=== PATIENT | male | born 1990 | race Caucasian/White ===

== ENCOUNTER 2020-08-11 00:39 | Emergency (ER) | payer OTHER, SELFPAY ==
--- NOTE | ~2020-08-11 | XR_ITS ---
EXAMINATION: XR CHEST CLINICAL INFORMATION: Chest pain COMPARISON: 07/06/2017 TECHNIQUE: 2 views of the chest were obtained. FINDINGS: No significant abnormality is noted involving the heart, lungs, mediastinum, bony thorax or soft tissues. XR/XR chest 2V IMPRESSION: Unremarkable examination.
--- NOTE | 2020-08-11 00:50 | ECG_ITS ---
Test Reason : CHEST PAIN Blood Pressure : / mmHG Vent. Rate : 094 BPM Atrial Rate : 094 BPM P-R Int : 138 ms QRS Dur : 092 ms QT Int : 342 ms P-R-T Axes : 079 027 058 degrees QTc Int : 427 ms Normal sinus rhythm with sinus arrhythmia Possible Left atrial enlargement Incomplete right bundle branch block Borderline ECG No previous ECGs available Referred By: Mendoza Sanford Electronically Signed By:ESAU FITCH
[2020-08-11 00:52] VITALS: BP 137/79; PULSE 106; RESP 18; TEMP 37.1; O2SAT 98; BMI 19.0
[2020-08-11 01:13] VITALS: BP 131/75; PULSE 95; RESP 18; O2SAT 97
--- NOTE | 2020-08-11 01:27 | ED_ITS ---
HPI - Chest Pain General Chief Complaint: Chest Pain Stated Complaint: Chest Pain Time Seen by Provider: 08/11/20 01:27 Source: patient Mode of arrival: ambulatory Limitations: no limitations History of Present Illness HPI narrative: pt Was playing harmonica earlier today and started having pain in the left side of the chest no known cardiac history. Pain increases on deep inspiration no cough no shortness of breath no radiation of pain Related Data Allergies Allergy/AdvReac Type Severity Reaction Status Date / Time No Known Allergies Allergy Unverified 01/18/20 16:12 Review of Systems Review of Systems: Constitutional : No Weight loss, No Fever, No Chills ENT/Mouth : No sore throat, No Rhinorrhea Eyes: No Eye Pain, No Swelling Cardiovascular : + Chest Pain, no palpitations Respiratory : No Cough, No Sputum, no shortness of breath Gastrointestinal : no Nausea, No Vomiting, No Diarrhea, No abdominal Pain, no black stools Genitourinary : No Dysuria, No Urinary Frequency Musculoskeletal : No joint pain, No Myalgias, No Joint Swelling Skin : No Skin Lesions, No rash Neuro : No Weakness, No Numbness, No Dizziness, No Headache Psych : No Anxiety/Panic, No Depression Heme/Lymph: No Bruising, No Lymphadenopathy Endocrine : No Polyuria, No Polydipsia All other systems reviewed and are negative [facility] Social History Social History Alcohol intake: current Alcohol intake frequency: a few times a month Smoking Status: Former smoker Smoked in Last 30 Days: No Use of substances other than those prescribed or required for medical reasons: No Advance Directives: No Physical Exam Vital Signs: Vital Signs: Last Vital Signs Temp 98.8 F 08/11/20 00:52 Pulse 95 08/11/20 01:13 Resp 18 08/11/20 01:13 BP 131/75 08/11/20 01:13 Pulse Ox 97 08/11/20 01:13 Body Mass Index 19.0 Appearance: Alert. Oriented X3. No acute distress. Eyes: Pupils equal, round and reactive to light. ENT: Pharynx normal. Neck: Normal inspection. Neck supple. CVS: Normal heart rate and rhythm. Pulses normal. Respiratory: No respiratory distress. Breath sounds normal. Abdomen: Soft and nontender. Bowel sounds are present, no mass palpable, no CVA tenderness Skin: Skin warm and dry. Normal skin color. Normal skin turgor. Extremities: No lower extremity edema. Neuro: Oriented X 3. No motor deficit. No sensory deficit. MDM - Chest Pain MDM Narrative Medical decision making narrative: Patient's chest pain likely pleuritic patient is saturating 98% at room air chest x-ray negative for pneumothorax will discharge patient ECG Data ECG #1: Attestation: I personally reviewed and interpreted this ECG as follows: Interpretation: Normal sinus rhythm heart rate 94 beats per minute incomplete right bundle-branch block normal axis no acute ST T wave changes no acute ischemia Discharge Plan Discharge Clinical Impression: Acute chest wall pain Patient Disposition: Home, Self-Care Instructions: Chest Wall Pain (ED) Additional Instructions: The chest x-ray is normal. Report to the ER if increased shortness of breath or pain
== END 2020-08-11 02:58 | disposition home or self-care (01) ==
PROVIDERS: Emergency Provider Internal Medicine; PCP Internal Medicine
DX: R07.89 Other chest pain (principal)
CPT/HCPCS: 71046; 93005; 99283; 99285

== ENCOUNTER 2024-05-05 15:02 | Outpatient (REF) | payer OTHER, SELFPAY ==
--- NOTE | ~2024-05-05 | US_ITS ---
CLINICAL HISTORY: tinnitus US Bilateral Carotid Duplex COMPARISON: None FINDINGS: Real-time imaging with color flow doppler imaging and spectral analysis was performed. Waveforms are normal morphology. Peak systolic velocities: Right CCA: 164 cm/s Right ICA: 142 cm/s ICA/CCA ratio: Normal. Right ECA: Patent. Right vertebral artery flow is antegrade. Left CCA: 199 cm/s Left ICA: 157 cm/s ICA/CCA ratio: Normal. Left ECA: Patent. Left vertebral artery flow is antegrade. IMPRESSION: Estimated 50-79 percent stenosis in the bilateral ICAs. This document has been electronically signed by: Lorenzo Hays MD on 05/09/2024 05:00:03
== END 2024-05-05 15:03 | disposition home or self-care (01) ==
LOC: HO.US 15:02
PROVIDERS: PCP Internal Medicine; Visit Provider Internal Medicine
DX: H93.13 Tinnitus, bilateral (principal)
CPT/HCPCS: 93880

== ENCOUNTER → 2024-05-05 15:33 | Outpatient (BNV) | payer OTHER, SELFPAY | PROVIDERS: PCP Internal Medicine; Visit Provider Radiology Diagnostic Radiology | DX: I65.23 Occlusion and stenosis of bilateral carotid arteries (principal) | CPT/HCPCS: 93880 ==

== ENCOUNTER 2024-07-04 15:06 | Outpatient (REF) | payer OTHER, SELFPAY ==
--- NOTE | ~2024-07-04 | XR_ITS ---
CLINICAL HISTORY: M25.532 - Pain in left wrist 4 view left wrist Comparison: None Findings: No fractures or dislocations. No significant arthritic change or erosions. No radiopaque foreign body. IMPRESSION: 1. No acute findings This document has been electronically signed by: Jasmin Mcintyre MD on 07/05/2024 14:33:27
--- OUTSIDE RECORDS SUMMARY | 2024-07-04 19:55 | XMS_ITS | Encounter Summary ---
Author Organization [facility] Address [address] [place] [address] Phone Care Team Providers Care Family Practice Physician Assistant Name Role Phone Unavailable Primary Care Provider Unavailabl e Encounter Details Date Type Department Care Team (Late st Contact Info) Description 12/17/2016 Conversion Encounter [facility] - [address] [id number] Social History Tobacco Use Types Packs/Day Years [...]
--- OUTSIDE RECORDS SUMMARY | 2024-07-04 19:55 | XMS_ITS | Clinical Summary ---
Author Organization [facility] Address [address] [place] [address] Phone Care Team Providers Care Vaccine Manager Name Role Phone Unavailable Primary Care Provider [...]
== END 2024-07-04 15:07 | disposition home or self-care (01) ==
LOC: HO.HOSX 15:06
PROVIDERS: PCP Internal Medicine
DX: M25.532 Pain in left wrist (principal); M77.8 Other enthesopathies, not elsewhere classified
CPT/HCPCS: 73110; 99202

== ENCOUNTER 2024-07-04 15:06 | Outpatient (AMB) | payer OTHER, SELFPAY ==
--- NOTE | 2024-07-04 15:37 | MHC.OFFVIS ---
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 Patient reports about 2-3 months ago he was at work when he lifted a box, states the box fell and he felt a tear in his wrist. He did not seek care however he continues to have pain with certain hand motions that is located at the ulnar aspect of wrist. States feeling a tightness sensation. He avoids hand motions that trigger his pain. No previous tx. 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 Patient reports about 2-3 months ago he was at work when he lifted a box, states the box fell and he felt a tear in his wrist. He did not seek care however he continues to have pain with certain hand motions that is located at the ulnar aspect of wrist. The patient states that he has no pain at baseline or with his regular activities or motions with his left hand, but does state that particular States feeling a tightness sensation. He avoids hand motions that trigger his pain. No previous tx. 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 Neuro: Normal sensation of the tips of all digits of the left hand at this time Vascular: Cap refill brisk Pain: No tenderness to palpation of the radial styloid, ulnar styloid, anatomical snuffbox, or elsewhere in the left wrist ROM: Patient was able to make a closed fist and extend all digits of the left hand fully Patient was able to flex, extend, pronate, supinate the left wrist fully and without any discomfort Skin: No lacerations or abrasions. General: No ecchymosis, erythema, or evidence of infection. No visible or palpable snapping or subluxation of the left ECU tendon Psych: Appears grossly normal Affect normal Attitude cooperative Assessment & Plan Assessment & Plan (1) Extensor carpi ulnaris tendinitis: Code(s): M77.8 - Other enthesopathies, not elsewhere classified Category: Medical Plan 1. ECU tendinitis Patient is educated about this condition Patient is educated about treatment available At this time, patient was provided with a Velcro wrist splint to wear with daytime activities while his wrist is bothering him Patient was also referred to occupational therapy for range of motion and strengthening of the left wrist Patient was amenable to this plan Patient will follow-up as needed with any acute concerns Orders: Orders XR wrist LT w scaphoid 07/04/24 M25.532 - Pain in left wrist OT Evaluation and Treatment Today M77.8 - Other enthesopathies, not elsewhere classified Coding Level of Care Code New Pt Level 3 (74838) Diagnoses Extensor carpi ulnaris tendinitis M77.8
[2024-07-04 15:42] VITALS: BMI 19.5
--- OUTSIDE RECORDS SUMMARY | 2024-07-04 19:08 | XMS_ITS | Clinical Summary ---
Author Organization [facility] Address [address] [place] [id number] Phone Care Team Providers Care Heating Equipment Repairer Name Role Phone Unavailable Primary Care Provider Unavailabl e Immunizations Immunization Administration Dates Next Due DTP 02/28/1994, 3,01/28/1993,10/23 DTaP 5 09/10/1997 Hep B, ped/adol 04/15/1993,1992,1992 Hib (PRP-T) 10/11/1993,199 3,01/28/1993,10/23 IPV 09/10/1997,199 4,01/28/1993,10/23 Influenza, injectable, trivalent 01/24/2009,04/02 Influenza, intranasal, trivalent 12/23/2009 MMR 09/10/1997,10/11/1993 Meningococcal Conj (Menactra) MCV4P 12/16/2006 Td (adult) (MBL), 2 Lf tetan us toxoid, PF, adsorbed 12/30/2004 Tdap 12/01/2007 Varicella 12/16/2006,11/17/1997 Family History Relation Name Status Comments Father Alive Father: Alive a nd well Mother Alive Mother: Alive a nd well Social History Tobacco Use Types Packs/Day Years Used Date Smoking Tobacco: Never Assessed Sex and Gender Information Value Date Recorded Sex Assigned at Not on file Legal Sex Male 4:35 PM EDT Gender Identity Not on file Sexual Orientation Not on file Last Filed Vital Signs Vital Sign Reading Time Taken Comments Blood Pressure 94/74 12/23/2009 12:00 AM EDT Pulse - - Temperature - - Respiratory Rate - - Oxygen Saturation - - Inhaled Oxygen Concentration - - Weight 56.9 kg (125 lb 8 oz) 12/23/2009 12:00 AM EDT Height 176 cm (5' 9.3 ) 12/23/2009 12:00 AM EDT Body Mass Index 18.37 12/23/2009 12:00 AM EDT Plan of Treatment Health Maintenance Due Date Last Done Comments Consider Men B Vaccine (1 of 2 - Bexsero 2-dose series) 2008 DTaP,Tdap,and Td Vaccines (7 - Td or Tdap) 11/30/2017 12/01/2007, 12/30/2004, 09/10/1997, Additional history exists Influenza Vaccines (#1) 2023 12/24/19, 01/24/2009, 04/13/2008 COVID-19 Vaccine ( season) 2024 Hepatitis B Vaccines Completed 04/15/1993, 1992, 1992 HIB Vaccines Completed 10/11/1993, 04/02, 01/28/1993, Additional history exists IPV Vaccines Completed 09/10/1997, 02/01, 01/28/1993, Additional history exists MMR Vaccines Completed 09/10/1997, 10/11/1993 Meningococcal Vaccine Aged Out 12/16/2006 No damari kush eligible based on patient's age to complete this topic Varicella Vaccines Completed 12/16/2006, 11/17/1997 HPV Vaccines Aged Out No longer eligi ble based on patient's age to complete this topic Hepatitis A Vaccines Aged Out No long er eligible based on patient's age to complete this topic Men B Vaccine Aged Out No longer elig ible based on patient's age to complete this topic Pneumococcal Vaccine Aged Out No long er eligible based on patient's age to complete this topic
--- OUTSIDE RECORDS SUMMARY | 2024-07-04 19:08 | XMS_ITS | Encounter Summary ---
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 Name Role Phone Unavailable Primary Care Provider Unavailabl e Encounter Details Date Type Department Care Team (Late st Contact Info) Description 12/17/2016 Conversion Encounter [facility] - [address] [id number] Social History Tobacco Use Types Packs/Day Years Used Date Smoking Tobacco: Never Assessed Sex and Gender Information Value Date Recorded Sex Assigned at Not on file Legal Sex Male 4:35 PM EDT Gender Identity Not on file Sexual Orientation Not on file documented as of this encounter Plan of Treatment Not on file documented as of this encounter Visit Diagnoses Not on filedocumented in this encounter
== END 2024-07-04 16:33 | disposition home or self-care (01) ==
PROVIDERS: PCP Internal Medicine
DX: M77.8 Other enthesopathies, not elsewhere classified (principal)
CPT/HCPCS: 99203

== ENCOUNTER → 2024-07-04 16:01 | Outpatient (BNV) | payer OTHER, SELFPAY | PROVIDERS: PCP Internal Medicine; Visit Provider Radiology Diagnostic Radiology | DX: M25.532 Pain in left wrist (principal) | CPT/HCPCS: 73110 ==

== ENCOUNTER 2024-07-09 11:22 | Emergency (ER) | payer OTHER, SELFPAY ==
--- NOTE | ~2024-07-09 | XR_ITS ---
CLINICAL HISTORY: chest pain 1 view chest x-ray. Comparison: 08/11/2020 Findings: The lungs are adequately expanded. No focal consolidation. No effusion or pneumothorax. Cardiac and mediastinal contours are within normal limits. No acute osseous abnormality Impression: No acute process. This document has been electronically signed by: Familia Yoder MD on 07/09/2024 12:54:28
--- NOTE | 2024-07-09 11:25 | ECG_ITS ---
Test Reason : headache Blood Pressure : */* mmHG Vent. Rate : 77 BPM Atrial Rate : 77 BPM P-R Int : 132 ms QRS Dur : 94 ms QT Int : 352 ms P-R-T Axes : 60 44 66 degrees QTcB Int : 398 ms Normal sinus rhythm with sinus arrhythmia Normal ECG When compared with ECG of 11-Aug-2020 00:50, Incomplete right bundle branch block is no longer Present Non-specific change in ST segment in Anterior leads T wave inversion no longer evident in Anterior leads Referred By: Bony Wade Electronically Signed By: ESAU FITCH
[2024-07-09 11:35] VITALS: BP 133/89; PULSE 96; RESP 20; TEMP 36.6; O2SAT 100; BMI 17.9
--- NOTE | 2024-07-09 11:40 | ED_ITS ---
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 Patient denies any recent long travel recent surgery. Patient denies any flu, fever, or chills. Patient states left-sided chest pain worse on movement and also breathing. Patient denies any estrogen use. Patient denies any calf pain. Related Data Home Medications ?Medication ?Instructions ?Recorded ?Confirmed No Known Home Meds 07/04/24 07/04/24 Allergies Allergy/AdvReac Type Severity Reaction Status Date / Time No Known Allergies Allergy Verified 07/09/24 11:38 Review of Systems 2 Review of Systems: left sided chest pain Yes all other systems are reviewed and are negative [facility] Social History Social History (Updated 07/04/24 @ 15:46 by Elena Sanchez [facility]) Alcohol intake: current Alcohol intake frequency: a few times a month Patient Tobacco Use Status: Former Tobacco user Smoked in Last 30 Days: No Use of substances other than those prescribed or required for medical reasons: No Advance Directives: No Advance Directives Information Provided: Yes Do you have a plan to hurt others: No Plan 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, 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 Physical Exam ED Vital Signs: Vital Signs - 24 hr 07/09/24 11:35 07/09/24 15:40 Temperature 97.9 F 97.7 F Pulse Rate 96 96 Respiratory Rate 20 18 Blood Pressure 133/89 133/89 Pulse Oximetry 100 100 Oxygen Delivery Method Room Air Room Air BMI result Body Mass Index 17.9 Const General: cooperative, healthy appearing, comfortable, no acute distress, well developed, alert, awake and Physically active Orientation/consciousness: oriented to person, oriented to place, oriented to time and patient oriented x3 HENMT Head: Yes normal to inspection, Yes No palpable skull fracture present, Yes normocephalic and Yes atraumatic Ears: hearing grossly normal bilaterally, external ears normal, TM's normal bilaterally, TM normal on the right, TM normal on the left, EAC's normal, mastoids normal and no periauricular adenopathy Throat: Yes posterior oropharynx normal, Yes tonsils normal and Yes uvula midline Eyes General: appearance normal, both eyes and all related structures and dysmorphic Neck Neck: Yes normal visual inspection, Yes full ROM, Yes no lymphadenopathy, Yes no meningeal signs, Yes trachea midline, Yes supple and No tender Chest Chest palpation & inspection: normal inspection of the chest and normal palpation of entire chest wall Resp Effort & Inspection: normal respiratory effort and able to speak in complete sentences Auscultation: clear to auscultation bilaterally Cardio Jugular venous distension: no JVD Heart sounds: S1 normal heart sound present and S2 normal heart sound present GI Inspection: Yes normal to inspection Palpation (GI): Soft to palpation, not firm, nontender, no guarding and not rigid General: Yes no CVA tenderness Back/Spine/Pelvis Back: no CVA tenderness and No back tenderness Skin General skin exam: no rashes or lesions noted, elasticity normal and turgor normal Neuro General: oriented to person, oriented to place, oriented to time, patient oriented x3, gait normal, tone normal, moves all extremities, Normal light touch and pain sensation, no meningeal signs, no focal motor deficits, CN's II-XI intact bilaterally and normal sensation to monofilament Extrem Other: Bilateral lower extremity negative for swelling, pitting edema, calf tenderness. General: Yes normal to inspection and Yes full ROM Psych Appearance: grossly normal, well kempt and not disheveled Course Course Course Narrative: RME: 33-year-old male presents to ED for 3 weeks of left-sided chest pain that is worse on movement and has pleurisy Patient states it got worse after laughing at blueprint duplicator couldn't count change 5 days ago. Patient denies any recent long travel recent surgery, estrogen hormonal use or any history of blood clots. Labs EKG chest x-ray ordered. Medical Decision Making Medical Decision Making MDM Narrative: 33-year-old male presents to ED for chest pain off and on for several weeks and worsened when laughing that a production control pegboard clerk who could not count his change. Patient states chest pain on movement of chest and breathing. Patient denies any recent long travel or recent surgery. Patient is to troponin negative. Heart score is 0. Dimer negative. PERC score is 0. Chest x-ray negative pneumonia. Patient does not want SARs strep to be done. Patient explained worrisome signs and informed to return to the ED immediately. Not suspecting PE, pneumothorax, hemothorax, myocarditis, pericarditis, cardiac tamponade, [place], or any other concerning etiologies. Differential Diagnosis Differential Diagnoses: The differential diagnosis associated with the presentation includes (Musculoskeletal, anxiety, chest pain) Admission/Observation Consideration of admission/observation: Escalation of care including admission/observation considered Lab Data MDM Lab Attestation statement: I reviewed the patient's lab results. 07/09/24 12:13 07/09/24 12:13 Labs: Lab Results 07/09/24 07/09/24 Range/Units 12:13 14:06 WBC 5.9 (4.8-10.8) X10*3/uL RBC 5.38 (4.60-5.80) X10*6/uL Hgb 16.7 (14.0-18.0) g/dl Hct 45.6 (42.0-52.0) % MCV 84.8 (80.0-98.0) fL MCH 31.0 (27.0-33.0) pg MCHC 36.6 H (31.0-36.0) g/dl RDW 11.6 (11.0-16.0) % Plt Count 156 L (160-400) X10*3/uL MPV 11.2 (9.4-12.4) fL Immature Gran % (Auto) 0.2 (0.0-0.4) % Neut % (Auto) 60.1 (45-73) % Lymph % (Auto) 31.5 (20-40) % Bee % (Auto) 6.9 (2-11) % Eos % (Auto) 1.0 (0-4) % Baso % (Auto) 0.3 (0-2) % Lymph # (Auto) 1.9 (1.2-4.9) X10*3/uL Bee # (Auto) 0.4 (0.1-1.2) X10*3/uL Eos # (Auto) 0.1 (0.0-0.4) X10*3/uL Baso # (Auto) 0.0 (0.0-0.2) X10*3/uL Abs Immat Gran (auto) 0.01 (0.00-0.03) X10*3/uL Absolute Neuts (auto) 3.5 (2.0-8.3) x10*3/uL Absolute Nucleated RBC 0.000 (0.0-0.012) X10*3/uL Nucleated RBC % (auto) 0.0 (0.0-0.2) /100WBC PT 11.5 (10.9-12.4) SEC INR 1.0 (0.9-1.1) APTT 32.4 (26.0-36.8) SEC D-Dimer High Sensitivty < 150 NG/ML Sodium 144 (135-145) mmol/L Potassium 4.0 (3.3-5.1) mmol/L Chloride 109 H (96-108) mmol/L Carbon Dioxide 27 (22-29) mmol/L Anion Gap 12 (12-20) BUN 14 (9-16) mg/dL Creatinine 0.89 (0.5-1.4) mg/dL Estim Creat Clear Calc 98.9 Estimated GFR > 60 Random Glucose 91 (60-115) mg/dL Calcium 9.6 (8.4-10.2) mg/dL Total Bilirubin 0.7 (0.0-1.0) mg/dL AST 22 (5-37) U/L ALT 25 (0-40) U/L Alkaline Phosphatase 65 (39-117) U/L Troponin I High Sens < 2.7 < 2.7 (<3.5-35.0) ng/L B-Natriuretic Peptide < 10 (<100) pg/mL Total Protein 7.3 (6.5-8.0) g/dL Albumin 4.7 (3.5-5.0) g/dL Independent Interpretation I performed an independent interpretation of an: EKG (Normal sinus) and Plain X- Ray Radiology Impression Discussion of test interpretation with radiology: I have reviewed the radiologist's reading. Independent Historian Clinical information obtained from an independent historian. History obtained from or confirmed by: Other (Patient) Prescription Management I considered prescription management with: Pain Medication Discharge Plan Discharge Clinical Impression: Chest pain Patient Disposition: Home, Self-Care Instructions: Chest Pain (ED) Additional Instructions: Your labs and EKG and chest x-ray were reassuring. Recommend follow-up with your primary care provider. Return to the ED immediately for any chest pain, shortness of breath, coughing up blood, leg swelling, calf pain, pleurisy, fever, chills, or any other concerning symptoms. Prescriptions: No Action No Known Home Meds Referrals: Kleber Byrd MD [Primary Care Provider] - (Chest pain) Interventions: ED Discharge Assessment Last Done: 07/09/24 15:40 Discharge Date/Time: 07/09/24 15:41 Print Language: Serbian
[2024-07-09 12:29] LABS: MANUAL DIFF FLAG NO
[2024-07-09 12:31] LABS: Basophils Percent Auto 0.3 % (0-2); Eosinophils Absolute Auto 0.1 X10*3/uL (0.0-0.4); Hematocrit 45.6 % (42.0-52.0); Hemoglobin 16.7 g/dl (14.0-18.0); Imm Gran Abs Auto 0.01 X10*3/uL (0.00-0.03); Imm Gran Pct Auto 0.2 % (0.0-0.4); Lymphocytes Absolute Auto 1.9 X10*3/uL (1.2-4.9); Lymphocytes Percent Auto 31.5 % (20-40); Mean Corpuscular HGB Conc 36.6 g/dl (31.0-36.0); Mean Corpuscular Volume 84.8 fL (80.0-98.0); Mean Platelet Volume 11.2 fL (9.4-12.4); Monocytes Absolute Auto 0.4 X10*3/uL (0.1-1.2); Monocytes Percent Auto 6.9 % (2-11); Neutrophils Absolute Auto 3.5 x10*3/uL (2.0-8.3); Neutrophils Percent Auto 60.1 % (45-73); Platelet Count 156 X10*3/uL (160-400); Red Blood Count 5.38 X10*6/uL (4.60-5.80); Red Cell Distribution Width 11.6 % (11.0-16.0); White Blood Count 5.9 X10*3/uL (4.8-10.8)
[2024-07-09 12:47] LABS: Alanine Aminotransferase 25 U/L (0-40); Albumin Level 4.7 g/dL (3.5-5.0); Alkaline Phosphatase 65 U/L (39-117); Anion Gap 12 (12-20); Aspartate Amino Transferase 22 U/L (5-37); Bilirubin Total 0.7 mg/dL (0.0-1.0); Blood Urea Nitrogen 14 mg/dL (9-16); Calcium 9.6 mg/dL (8.4-10.2); Carbon Dioxide 27 mmol/L (22-29); Chloride 109 mmol/L (96-108); Creatinine Clr Calc Pharmacy 98.9; Estimated Glomerular Filt Rate > 60; Glucose Random 91 mg/dL (60-115); Sodium 144 mmol/L (135-145); Total Protein 7.3 g/dL (6.5-8.0)
[2024-07-09 12:53] LABS: B Type Natriuretic Peptide < 10 pg/mL (<100)
[2024-07-09 12:57] LABS: Troponin-I High Sensitivity < 2.7 ng/L (<3.5-35.0)
--- OUTSIDE RECORDS SUMMARY | 2024-07-09 13:43 | XMS_ITS | Encounter Summary ---
Author Organization [facility] Address [address] [place] [phone] Phone Care Team Providers Care Brush Sander Name Role Phone Unavailable Primary Care Provider Unavailabl e Encounter Details Date Type Department Care Team (Late st Contact Info) Description 12/17/2016 Conversion Encounter [facility] - [address] [phone] Social History Tobacco Use Types Packs/Day Years [...]
--- NOTE | 2024-07-09 13:51 | PC.NURSE ---
Pt refusing Flu/RSV/Covid test.
[2024-07-09 14:20] LABS: Prothrombin Time 11.5 SEC (10.9-12.4)
[2024-07-09 14:22] LABS: Partial Thromboplastin Time 32.4 SEC (26.0-36.8)
[2024-07-09 14:27] LABS: D Dimer High Sensitivity < 150 NG/ML
[2024-07-09 14:36] LABS: Troponin-I High Sensitivity < 2.7 ng/L (<3.5-35.0)
[2024-07-09 15:40] VITALS: BP 133/89; PULSE 96; RESP 18; TEMP 36.5; O2SAT 100
== END 2024-07-09 15:41 | disposition home or self-care (01) ==
PROVIDERS: Physician Assistant; Emergency Provider Emergency Medicine; PCP Internal Medicine
DX: R07.89 Other chest pain (principal); R06.02 Shortness of breath; Z79.899 Other long term (current) drug therapy; Z87.891 Personal history of nicotine dependence
CPT/HCPCS: 36415; 71045; 80053; 83880; 84484; 85025; 85379; 85610; 85730; 93005; 99283; 99284

== ENCOUNTER → 2024-07-09 11:25 | Outpatient (BNV) | payer OTHER, SELFPAY | PROVIDERS: Emergency Provider Emergency Medicine; PCP Internal Medicine; Visit Provider Internal Medicine | DX: R51.9 Headache, unspecified (principal) | CPT/HCPCS: 93010 ==

== ENCOUNTER → 2024-07-09 11:37 | Outpatient (BNV) | payer OTHER, SELFPAY | PROVIDERS: PCP Internal Medicine; Visit Provider Radiology Vascular & Interventional Radiology | DX: R07.9 Chest pain, unspecified (principal) | CPT/HCPCS: 71045 ==

== ENCOUNTER 2024-07-19 09:18 | Outpatient (RCR) | payer OTHER, SELFPAY ==
--- NOTE | 2024-07-19 10:26 | MHC.OT.DC ---
[address] [phone] F: [phone] Occupational Therapy Discharge Note Patient Name: Manuel Turner Provider: Oliver Ojeda PA-C Diagnosis: ECU Tendinitis Date of Evaluation: 07/19/24 Date of Discharge: 07/19/24 Treatments to Date: 1 Discharge Status: Discharge Summary: 33 yo male was at work and lifted a heavy a box onto a shelf, felt a sharp feeling like a tear in his ulnar wrist. He did not seek medical attention for several months and then was seen by Oliver Ojeda at [facility]. No acute changes on x-ray. He was given wrist brace and referred to OT. On assessment today, he has good range and strength in left arm hand and wrist. No instability noted and denies pain w/ palpation to ulnar wrist, but has slight twinge with resisted wrist flexion. 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 I have educated him on general joint protection and use of bimanual grasps and lifts, as well as isometric strengthening for HEP. I anticipate he will continue to progress and no outpatient hand therapy services indicated at this time. Electronically Signed By: GERRY Jacksno/Krista CAMEJO Reviewed/agree with student documentation: Therapist: Please Sign and return to therapist, thank you for your referral.
== END 2024-07-19 10:27 | disposition home or self-care (01) ==
LOC: HO.OT 09:18
PROVIDERS: PCP Internal Medicine
DX: M77.8 Other enthesopathies, not elsewhere classified (principal)
CPT/HCPCS: 97110; 97165; 97535

== ENCOUNTER 2024-10-26 14:02 | Outpatient (AMB) | payer OTHER, SELFPAY ==
[2024-10-26 14:16] VITALS: BP 120/70; PULSE 86; TEMP 36.9; O2SAT 99; BMI 18.0
--- NOTE | 2024-10-26 14:16 | A.OFFPC_ITS ---
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 NAD EYES: EOMI. Anicteric. HENT: Moist mucous membranes. Bilateral cerumen impaction. Once the left sided cerumen was flushed the left ear drum was noted to be bulging and exudative LUNGS: Clear to auscultation bilaterally. CARDIOVASCULAR: Regular rate and rhythm. No murmur. No JVD. ABDOMEN: Soft, non-tender +bs EXTREMITIES: No edema. Non-tender. SKIN: No rashes or lesions. Warm. NEUROLOGIC: No focal neurological deficits. CN II-XII grossly intact PSYCHIATRIC: Cooperative. Appropriate mood and affect [facility] Family History Mother No problems noted. Father No problems noted. 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 1. Little interest or pleasure in doing things: not at all 2. Feeling down, depressed, or hopeless: several days 3. Trouble falling or staying asleep, or sleeping too much: not at all 4. Feeling tired or having little energy: not at all 5. Poor appetite or overeating: not at all 6. Feeling bad about yourself - or that you are a failure or have let yourself or your family down: not at all 7. Trouble concentrating on things, such as reading the newspaper or watching television: not at all 8. Moving or speaking so slowly that other people could have noticed. Or the opposite - being so fidgety or restless that you have been moving around a lot more than usual: not at all 9. Thoughts that you would be better off or of hurting yourself in some way: not at all Total score: 1 Depression Screening Interpretation: Negative Depression Screening Done: Yes 18968 - PHQ-9 Billing: Yes Source: Developed by Drs. Von Mckenna, Geetha Randall, Sandeep Gonzalez and colleagues, with an educational yan from [employer]. Thrive Questionnaire Date Thrive assessed: 10/26/24 I am a: Patient Within the past 12 months, did the food you bought not last and you didn't have the money to get more?: Never true Within the past 12 months, did you worry whether your food would run out before you got money to buy more?: Never true Do you have trouble paying for medicines?: No Do you have trouble getting transportation to medical appointments?: No Do you have trouble paying your heating and electricity bill?: No Do you have trouble taking care of your child, family member or friend?: No Do you have trouble with day-to-day activities such as bathing, preparing meals, shopping, managing finances, etc.?: No Are you currently unemployed and looking for a job?: No Are you interested in more education?: No THRIVE Score: 0 AUDIT C Alcohol Use Questionnaire (AUDIT-C) 1. How often do you have a drink containing alcohol?: Monthly or less 2. How many drinks containing alcohol do you have on a typical day when you are drinking?: 1 or 2 3. How often do you have six or more drinks on one occasion?: Less than monthly Total Score: 2 PERRY-7 AMB Questionnaire PERRY-7 Date PERRY - 7 assessed: 10/26/24 Feeling nervous, anxious, or on edge: 1 = Several days Not being able to stop or control worryin = Not at all Worrying too much about different things: 0 = Not at all Trouble relaxin = Not at all Being so restless that it is hard to sit still: 0 = Not at all Becoming easily annoyed or irritable: 0 = Not at all Feeling afraid as if something awful might happen: 0 = Not at all Total PERRY-7 score (0-4 normal; 5-9 mild; 10-14 moderate; 15-21 severe): 1 Source: Developed by Drs. Von Mckenna, Geetha Randall, Sandeep Gonzalez and colleagues, with an educational yan from [employer]. Physical exam (Primary Care) Vital Signs: Last Vital Signs Temp 98.4 F 10/26/24 14:16 Pulse 86 10/26/24 14:16 BP 120/70 10/26/24 14:16 Pulse Ox 99 10/26/24 14:16 Oxygen Delivery Method Room Air 10/26/24 14:16 BMI result Body Mass Index 18.0 Tobacco/Smoking Status: Tobacco use Status Tobacco use date assessed 10/26/24 10/26/24 14:17 Patient Tobacco Use Status Former Tobacco user 10/26/24 14:17 e-Cigarette/Vaping Use Former Use 10/26/24 14:17 PHQ-9: PHQ-9 Score PHQ-9: Total score 1 10/26/24 14:27 Depression Screening Interpretation: Negative Thrive Assessment: Date of Thrive Assessment Date Thrive assessed 10/26/24 10/26/24 14:17 Coding Level of Care Code Est Pt Level 3 (62142) Diagnoses Impacted cerumen of left ear H61.22 Laterality: left Suppurative otitis media of left ear, unspecified chronicity H66.42 Otitis media type: suppurative Chronicity: unspecified Additional Codes PHQ-9 - 41599 - PHQ-9 Billing: Yes ([id number]) Assessment & Plan Assessment & Plan (1) Cerumen impaction: Code(s): H61.20 - Impacted cerumen, unspecified ear Category: Medical Qualifiers: Laterality: left Qualified Code(s): H61.22 - Impacted cerumen, left ear (2) Left otitis media: Code(s): H66.92 - Otitis media, unspecified, left ear Category: Medical Qualifiers: Otitis media type: suppurative Chronicity: unspecified Qualified Code(s): H66.42 - Suppurative otitis media, unspecified, left ear Plan Left otitis media Augmentin ordered. Return/call prn persistent or worsening symptoms Medications: New amoxicillin-pot clavulanate 875-125 mg 1 tab PO BID 14 tabs 0RF
--- OUTSIDE RECORDS SUMMARY | 2024-10-26 16:56 | XMS_ITS | Clinical Summary ---
Author Organization [facility] Address [address] [place] [phone] Phone Care Team Providers Care Machine Cloth Examiner Name Role Phone Unavailable Primary Care Provider Unavailabl e Immunizations Immunization Administration Dates Next Due DTP 02/28/1994, 3,01/28/1993,10/23 DTaP 5 09/10/1997 Hep B, ped/adol 04/15/1993,1992,1992 Hib (PRP-T) 10/11/1993,199 3,01/28/1993,10/23 IPV 09/10/1997, 4,01/28/1993,10/23 Influenza, injectable, trivalent 01/24/2009,04/02 Influenza, intranasal, [...] Health Maintenance Due Date Last Done Comments DTaP,Tdap,and Td Vaccines (7 - Td or Tdap) 11/30/2017 12/01/2007, 12/30/2004, 09/10/1997, Additional history exists Influenza Vaccines (#1) 2023 12/24/19 10, 01/24/2009, 04/13/2008 COVID-19 Vaccine ( season) 2024 [...]
== END 2024-10-26 15:26 | disposition home or self-care (01) ==
LOC: HO.HMCHD 14:02
PROVIDERS: PCP Internal Medicine; Visit Provider Internal Medicine
DX: H61.22 Impacted cerumen, left ear (principal); H66.42 Suppurative otitis media, unspecified, left ear

== ENCOUNTER → 2024-10-26 14:02 | Outpatient (BNVA) | payer OTHER, SELFPAY | PROVIDERS: PCP Internal Medicine; Visit Provider Internal Medicine | DX: H61.22 Impacted cerumen, left ear (principal); H66.42 Suppurative otitis media, unspecified, left ear | CPT/HCPCS: 96127; 99212 ==

== ENCOUNTER 2024-11-17 10:32 | Outpatient (AMB) | payer OTHER, SELFPAY ==
[2024-11-17 10:27] VITALS: BP 120/72; PULSE 95; TEMP 36.9; O2SAT 98; BMI 17.9
--- NOTE | 2024-11-17 10:27 | MHC.PC.OV ---
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 He was using flonase but then started to having frequent crackling in the right ear. He continues to report pulsatile tinnitus in the right ear. Reviewed previous carotid u/s there is b/l 50-79% stenosis. He had not previously received these results. Bilateral cerumen impaction today. ROS see HPI PHYSICAL EXAM: GENERAL: Alert and oriented x 3. NAD EYES: EOMI. Anicteric. HENT: Moist mucous membranes. Bilateral cerumen impaction. LUNGS: Clear to auscultation bilaterally. CARDIOVASCULAR: Regular rate and rhythm. No murmur. No JVD. ABDOMEN: Soft, non-tender +bs EXTREMITIES: No edema. Non-tender. SKIN: No rashes or lesions. Warm. NEUROLOGIC: No focal neurological deficits. CN II-XII grossly intact PSYCHIATRIC: Cooperative. Appropriate mood and affect COUNTS INCLUDE [facility] BEDS AT THE [facility] Family History Mother No problems noted. Father No problems noted. 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 1. Little interest or pleasure in doing things: not at all 2. Feeling down, depressed, or hopeless: nearly every day 3. Trouble falling or staying asleep, or sleeping too much: not at all 4. Feeling tired or having little energy: not at all 5. Poor appetite or overeating: not at all 6. Feeling bad about yourself - or that you are a failure or have let yourself or your family down: not at all 7. Trouble concentrating on things, such as reading the newspaper or watching television: not at all 8. Moving or speaking so slowly that other people could have noticed. Or the opposite - being so fidgety or restless that you have been moving around a lot more than usual: not at all 9. Thoughts that you would be better off or of hurting yourself in some way: not at all Total score: 3 Depression Screening Interpretation: Negative Depression Screening Done: Yes 62728 - PHQ-9 Billing: Yes Source: Developed by Drs. Von Mckenna, Geetha Randall, Sandeep Gonzalez and colleagues, with an educational yan from [employer]. Thrive Questionnaire Date Thrive assessed: 11/17/24 I am a: Patient Within the past 12 months, did the food you bought not last and you didn't have the money to get more?: Never true Within the past 12 months, did you worry whether your food would run out before you got money to buy more?: Never true Do you have trouble paying for medicines?: No Do you have trouble getting transportation to medical appointments?: No Do you have trouble paying your heating and electricity bill?: No Do you have trouble taking care of your child, family member or friend?: No Do you have trouble with day-to-day activities such as bathing, preparing meals, shopping, managing finances, etc.?: No Are you currently unemployed and looking for a job?: No Are you interested in more education?: No THRIVE Score: 0 AUDIT C Alcohol Use Questionnaire (AUDIT-C) 1. How often do you have a drink containing alcohol?: Monthly or less 2. How many drinks containing alcohol do you have on a typical day when you are drinking?: 1 or 2 3. How often do you have six or more drinks on one occasion?: Less than monthly Total Score: 2 PERRY-7 AMB Questionnaire PERRY-7 Date PERRY - 7 assessed: 11/17/24 Feeling nervous, anxious, or on edge: 3 = Nearly every day (anxious due to his hear problem) Not being able to stop or control worryin = Not at all Worrying too much about different things: 0 = Not at all Trouble relaxin = Not at all Being so restless that it is hard to sit still: 0 = Not at all Becoming easily annoyed or irritable: 0 = Not at all Feeling afraid as if something awful might happen: 0 = Not at all Total PERRY-7 score (0-4 normal; 5-9 mild; 10-14 moderate; 15-21 severe): 3 Source: Developed by Drs. Von Mckenna, Geetha Randall, Sandeep Gonzalez and colleagues, with an educational yan from [employer]. Physical exam (Primary Care) Vital Signs: Last Vital Signs Temp 98.4 F 11/17/24 10:27 Pulse 95 11/17/24 10:27 BP 120/72 11/17/24 10:27 Pulse Ox 98 11/17/24 10:27 Oxygen Delivery Method Room Air 11/17/24 10:27 BMI result Body Mass Index 17.9 Tobacco/Smoking Status: Tobacco use Status Tobacco use date assessed 11/17/24 11/17/24 10:28 Patient Tobacco Use Status Former Tobacco user 11/17/24 10:28 e-Cigarette/Vaping Use Former Use 11/17/24 10:28 PHQ-9: PHQ-9 Score PHQ-9: Total score 3 11/19/24 19:37 Depression Screening Interpretation: Negative Thrive Assessment: Date of Thrive Assessment Date Thrive assessed 11/17/24 11/17/24 10:28 Coding Level of Care Code Est Pt Level 4 (41428) Diagnoses Bilateral carotid artery stenosis I65.23 Pulsatile tinnitus H93.A9 Additional Codes PHQ-9 - 23752 - PHQ-9 Billing: Yes ([id number]) Assessment & Plan Assessment & Plan (1) Bilateral carotid artery stenosis: Code(s): I65.23 - Occlusion and stenosis of bilateral carotid arteries Category: Medical (2) Pulsatile tinnitus: Code(s): H93.A9 - Pulsatile tinnitus, unspecified ear Category: Medical Plan Bilateral cerumen impaction -debrox ordered. Return here or walk in care prn for cleaning Pulsatile tinnitus-has ENT visit July. MRI ordered r/o aneurysm Bilatera carotid stenosis-referral to vascular Orders: Orders MR head/brain wo con 11/17/24 H93.A9 - Pulsatile tinnitus, unspecified ear, I65.23 - Occlusion and stenosis of bilateral carotid arteries Referrals Ear/Nose/Throat Referral H92.09 - Otalgia, unspecified ear, H93.A9 - Pulsatile tinnitus, unspecified ear Vascular Surgery Referral I65.23 - Occlusion and stenosis of bilateral carotid arteries Medications: New Debrox 6.5% (carbamide peroxide) 5 drps otic (ears) DAILY 15 mL 1RF 4 days NS
--- OUTSIDE RECORDS SUMMARY | 2024-11-17 11:01 | XMS_ITS | Clinical Summary ---
Author Organization [facility] Address [address] [place] [phone] Phone Care Team Providers Care Pan Reclaim Processor Name Role Phone Unavailable Primary Care Provider [...] 11/30/2017 12/01/2007, 12/30/2004, 09/10/1997, Additional history exists COVID-19 Vaccine (2023- season) 2024 Influenza Vaccines (#1) 2024 12/24/19 10, 01/24/2009, 04/13/2008 Hepatitis B Vaccines Completed 04/15/1993, 1992, 1992 [...]
== END 2024-11-17 11:14 | disposition home or self-care (01) ==
LOC: HO.HMCHD 10:32
PROVIDERS: PCP Internal Medicine; Visit Provider Internal Medicine
DX: I65.23 Occlusion and stenosis of bilateral carotid arteries (principal); H93.A9 Pulsatile tinnitus, unspecified ear

== ENCOUNTER → 2024-11-17 10:32 | Outpatient (BNVA) | payer OTHER, SELFPAY | PROVIDERS: PCP Internal Medicine; Visit Provider Internal Medicine | DX: I65.23 Occlusion and stenosis of bilateral carotid arteries (principal); H93.A1 Pulsatile tinnitus, right ear; H61.23 Impacted cerumen, bilateral; Z13.31 Encounter for screening for depression; Z13.39 Encounter for screening examination for other mental health and behavioral disorders | CPT/HCPCS: 96127; 99212 ==

== ENCOUNTER 2024-12-21 09:04 | Outpatient (AMB) | payer OTHER, SELFPAY ==
--- NOTE | 2024-12-21 09:06 | MHC.OFFVIS ---
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 Pt had ordered for ringing in the right ear. Pt states he had followed up for hearing issues in the right ear as well. 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 The tinnitus is described as a pulsing sensation occurring intermittently, particularly when leaning forward, and has been present for over a year. The patient has not noticed any significant changes in the severity of the tinnitus since its onset. An ultrasound was performed, has been quite concerned about this. In terms of carotids he is asymptomatic. The patient has a history of hearing loss in the left ear due to wax buildup, which resolved after the wax was cleared. The patient has scheduled an ENT consultation for further evaluation of the tinnitus and hearing issues. The patient has a history of smoking cannabis since the age of 18 and quit smoking cigarettes in 2017. He also reported a history of alcohol consumption, which he has since reduced. The patient experienced chest pain in the past, for which he underwent an emergency evaluation including blood tests and a chest X-ray, both of which were unremarkable. He reports high levels of stress and a lack of regular exercise. [facility] Family History Mother No problems noted. Father No problems noted. 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 Cognitive needs: No Hearing needs: No Vision needs: Yes (rx glasses) Review of Systems Const All systems reviewed & are unremarkable except as noted in HPI and below Reports no additional complaints ENT Reports Normal hearing present Card Denies chest pain, Denies chest pain at rest, Denies chest pain with activity and Denies pedal edema Resp Denies cough GI Denies abdominal pain Musc Denies abnormal gait, Denies muscle cramps and Denies radiating pain into limb Skin/Breast Denies skin ulcer and Denies wounds Neuro Reports Normal hearing present and Denies abnormal gait Psych Reports no additional complaints Physical Exam Vital Signs: Last Vital Signs BP 104/70 12/21/24 09:15 BMI result Body Mass Index 17.9 Const General: cooperative, healthy appearing and comfortable Orientation/consciousness: oriented to person, oriented to place and oriented to time HEENT Head: Yes normal to inspection Neck Neck: Yes normal visual inspection Carotids: no bruits Chest Chest palpation & inspection: normal inspection of the chest Resp Effort & Inspection: normal respiratory effort and able to speak in complete sentences Auscultation: clear to auscultation bilaterally, no crackles, no rales, no rhonchi and no wheezes Cardio Rate: regular rate Rhythm: regular rhythm Heart sounds: S1 normal heart sound present and S2 normal heart sound present Bruits: no carotid bruits Peripheral pulses: Peripheral pulses 2+ throughout GI Inspection: Yes normal to inspection Skin Wounds: no wounds Hair: normal Neuro General: oriented to person, oriented to place and oriented to time Cranial nerves: Yes CN's II-XII intact bilaterally and Yes Normal hearing present Cognition (Neuro): normal cognition Motor exam (neuro): 5/5 motor strength present throughout Extrem Other: venous exam: No significant superficial varicosities or spider telangiectasias, minimal edema General: No clubbing, No cyanosis and No edema Psych Appearance: grossly normal Mental Status: mental status grossly normal Speech and movement: Normal speech and movement present Assessment & Plan Assessment & Plan (1) Bilateral carotid artery stenosis: Code(s): I65.23 - Occlusion and stenosis of bilateral carotid arteries Category: Medical Plan: I discussed with the patient that the ultrasound findings of mild carotid artery stenosis are not concerning for potential of stroke. We agreed to repeat the ultrasound to obtain a more accurate assessment. He politely refused CT scan due to the use of contrast so we will repeat ultrasound. I also emphasized the importance of following up with the ENT specialist for the tinnitus and hearing issues. We discussed lifestyle modifications, including stress reduction and increased physical activity, to improve his overall health. Thank you for allowing us to assist in his care. If there are any questions or concerns please do not hesitate to contact us. Plan Patient was informed and verbally consented to the use of an ambient scribe for clinic note documentation during this visit. Orders: Orders US carotid duplex BI Today I65.23 - Occlusion and stenosis of bilateral carotid arteries Patient Instructions: - Follow up with ENT specialist in July for tinnitus and hearing evaluation. - Repeat ultrasound to reassess carotid artery stenosis. - Implement lifestyle changes to reduce stress and increase physical activity. Coding Level of Care Code New Pt Level 4 (61866) Complex EM visit Add On G2211 Diagnoses Bilateral carotid artery stenosis I65.23
[2024-12-21 09:07] VITALS: BP 112/70; BMI 17.9
[2024-12-21 09:15] VITALS: BP 104/70
--- OUTSIDE RECORDS SUMMARY | 2024-12-21 10:06 | XMS_ITS | Clinical Summary ---
Author Organization [facility] Address [address] [place] [phone] Phone Care Team Providers Care Fishing Captain Name Role Phone Unavailable Primary Care Provider [...] 11/30/2017 12/01/2007, 12/30/2004, 09/10/1997, Additional history exists HPV Vaccines (1 - 3-dose SCDM series) 08/13/2019 COVID-19 Vaccine ( season) 2024 Influenza Vaccines (#1) 2024 12/24/19 10, 01/24/2009, 04/13/2008 Hepatitis B Vaccines Completed 04/15/1993, 1992, 1992 HIB Vaccines Completed 10/11/1993, 04/02, 01/28/1993, Additional history exists IPV Vaccines Completed 09/10/1997, 02/01, 01/28/1993, Additional history exists MMR Vaccines Completed 09/10/1997, 10/11/1993 Meningococcal Vaccine Aged Out 12/16/2006 No damari kush eligible based on patient's age to complete this topic Varicella Vaccines Completed 12/16/2006, 11/17/1997 Hepatitis A Vaccines Aged Out No long er eligible based on patient's age to complete this topic Men B Vaccine Aged Out No longer elig ible based on patient's age to complete this topic Pneumococcal Vaccine Aged Out No long er eligible based on patient's age to complete this topic
== END 2024-12-21 09:38 | disposition home or self-care (01) ==
LOC: HO.HVS 09:04
PROVIDERS: PCP Internal Medicine; Visit Provider Surgery Vascular Surgery
DX: I65.23 Occlusion and stenosis of bilateral carotid arteries (principal)
CPT/HCPCS: 99204

== ENCOUNTER → 2024-12-21 09:04 | Outpatient (BNVA) | payer OTHER, SELFPAY | PROVIDERS: PCP Internal Medicine; Visit Provider Surgery Vascular Surgery | DX: I65.23 Occlusion and stenosis of bilateral carotid arteries (principal) | CPT/HCPCS: 99202 ==

== ENCOUNTER 2025-03-15 10:26 | Outpatient (REF) | payer OTHER, SELFPAY ==
--- NOTE | ~2025-03-15 | US_ITS ---
CLINICAL HISTORY: I65.23 - Occlusion and stenosis of bilateral carotid arteries --- Additional Notes or Special Instructions: Re-evaluation of carotid stenosis. Previous study was done on 05 05 2024 Bilateral Carotid Duplex Comparison: 05/05/2024 Findings: No significant plaque within the common carotid arteries. No significant plaque within the carotid bulbs. Color doppler and spectral tracings normal. Peak systolic velocities: Right CCA: 195 cm/s. Right ICA: 90 cm/s. ICA/CCA ratio: 0.4 Right ECA: 147 cm/s. Right vertebral artery flow antegrade. Left CCA: 173 cm/s. Left ICA: 93 cm/s. ICA/CCA ratio: 0.5 Left ECA: 102 cm/s. Left vertebral artery flow antegrade. IMPRESSION: Normal carotid velocities, no significant stenosis (0-49% stenosis). This document has been electronically signed by: Rg Lela MD on 03/16/2025 11:36:16
--- OUTSIDE RECORDS SUMMARY | 2025-03-15 12:48 | XMS_ITS | Clinical Summary ---
Author Organization [facility] Address [address] [place] [phone] Phone Care Team Providers Care Finance Assistant Name Role Phone Unavailable Primary Care [...] Vaccines (1 - 3-dose SCDM series) 08/13/2019 Influenza Vaccines (#1) 2024 12/24/19, 01/24/2009, 04/13/2008 COVID-19 Vaccine (2024- season) 2025 Hepatitis B Vaccines Completed 04/15/1993, 1992, 1992 [...]
--- OUTSIDE RECORDS SUMMARY | 2025-03-15 12:48 | XMS_ITS | Encounter Summary ---
Author Organization [facility] Address [address] [place] [phone] Phone Care Team Providers Care Instructor Ground Services Name Role Phone Unavailable Primary Care Provider Unavailabl e Encounter Details Date Type Department Care Team (Late st Contact Info) Description 12/17/2016 Conversion Encounter [facility] - [address] [address] Social History Tobacco Use Types Packs/Day Years [...]
== END 2025-03-15 10:27 | disposition home or self-care (01) ==
LOC: HO.US 10:26
PROVIDERS: PCP Internal Medicine; Visit Provider Surgery Vascular Surgery
DX: I65.23 Occlusion and stenosis of bilateral carotid arteries (principal)
CPT/HCPCS: 93880

== ENCOUNTER → 2025-03-15 10:27 | Outpatient (BNV) | payer OTHER, SELFPAY | PROVIDERS: PCP Internal Medicine; Visit Provider Specialist | DX: I65.23 Occlusion and stenosis of bilateral carotid arteries (principal) | CPT/HCPCS: 93880 ==

== ENCOUNTER 2025-04-12 10:58 | Outpatient (AMB) | payer OTHER, SELFPAY ==
--- NOTE | 2025-04-12 11:01 | A.OFFVIS_ITS ---
Vital Signs 04/12/25 11:02 Height 5 ft 11 in Weight 128 lb BMI 17.9 Intake Visit Reasons: follow up s/p Carotid US 03/16/25 Intake Note: follow up carotid US 03/16/25. Pt states that he still gets some ringing in the right ear Hat Mender Required: No Accompanied by: Self / Same As Patient Allergies No Known Allergies Allergy (Verified 04/12/25 11:05) HPI HPI follow up s/p Carotid US 03/16/25: Details: The patient is a 34 year old male presenting for a follow-up visit regarding his carotid ultrasound results for pulsatile tinnitus. He reports that the pulsatile tinnitus has diminished but is not completely gone. He has a follow-up appointment scheduled with an ENT specialist in July. The patient was previously prescribed ear drops by Dr. Gray but reports he has not used them much. He also recounts a past episode where he suddenly went deaf and was prescribed Flonase at an emergency facility. Following the use of Flonase, he developed a new clicking sensation in his ear, which has not subsided. The patient has a history of smoking since age 18 and has recently attempted to quit within the last week. A follow-up carotid ultrasound was performed on March 15, 2025, and the results were normal. He now presents for follow-up. [facility] Family History Mother No problems noted. Father No problems noted. 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 Cognitive needs: No Hearing needs: No Vision needs: Yes (rx glasses) Review of Systems Const All systems reviewed & are unremarkable except as noted in HPI and below Reports no additional complaints ENT Reports Normal hearing present Card Denies chest pain, Denies chest pain at rest, Denies chest pain with activity and Denies pedal edema Resp Denies cough GI Denies abdominal pain Musc Denies abnormal gait, Denies muscle cramps and Denies radiating pain into limb Skin/Breast Denies skin ulcer and Denies wounds Neuro Reports Normal hearing present and Denies abnormal gait Psych Reports no additional complaints Physical Exam Vital Signs: BMI result Body Mass Index 17.9 Const General: cooperative, healthy appearing and comfortable Orientation/consciousness: oriented to person, oriented to place and oriented to time HEENT Head: Yes normal to inspection Neck Neck: Yes normal visual inspection Carotids: no bruits Chest Chest palpation & inspection: normal inspection of the chest Resp Effort & Inspection: normal respiratory effort and able to speak in complete sentences Auscultation: clear to auscultation bilaterally, no crackles, no rales, no rhonchi and no wheezes Cardio Rate: regular rate Rhythm: regular rhythm Heart sounds: S1 normal heart sound present and S2 normal heart sound present Bruits: no carotid bruits Peripheral pulses: Peripheral pulses 2+ throughout GI Inspection: Yes normal to inspection Skin Wounds: no wounds Hair: normal Neuro General: oriented to person, oriented to place and oriented to time Cranial nerves: Yes CN's II-XII intact bilaterally and Yes Normal hearing present Cognition (Neuro): normal cognition Motor exam (neuro): 5/5 motor strength present throughout Extrem Other: venous exam: No significant superficial varicosities or spider telangiectasias, minimal edema General: No clubbing, No cyanosis and No edema Psych Appearance: grossly normal Mental Status: mental status grossly normal Speech and movement: Normal speech and movement present Results Reviewed Results Reviewed: Carotid ultrasound dated 03/15/2025 demonstrates bilateral 0-49% stenosis. Written report and images were reviewed. Assessment & Plan Assessment & Plan (1) Bilateral carotid artery stenosis: Code(s): I65.23 - Occlusion and stenosis of bilateral carotid arteries Category: Medical Plan: In short I do not believe his pulsatile tinnitus is related to his vascular status. Carotids were within normal limits. We did discuss this in detail with him. I did encourage him to try and use the prescribed ear drops. I also encouraged his efforts to stop smoking and reinforced its importance for long-t erm health. He is scheduled for ENT evaluation in July. He will follow up with us on an as-needed basis. Thank you for allowing us to assist in his care. Coding Level of Care Code Est Pt Level 4 (01045) Diagnoses Bilateral carotid artery stenosis I65.23
[2025-04-12 11:02] VITALS: BMI 17.9
== END 2025-04-12 11:18 | disposition home or self-care (01) ==
LOC: HO.HVS 10:58
PROVIDERS: PCP Internal Medicine; Visit Provider Surgery Vascular Surgery
DX: I65.23 Occlusion and stenosis of bilateral carotid arteries (principal)
CPT/HCPCS: 99214

== ENCOUNTER → 2025-04-12 10:58 | Outpatient (BNVA) | payer OTHER, SELFPAY | PROVIDERS: PCP Internal Medicine; Visit Provider Surgery Vascular Surgery | DX: I65.23 Occlusion and stenosis of bilateral carotid arteries (principal); H93.19 Tinnitus, unspecified ear | CPT/HCPCS: 99212 ==